=== PATIENT | female | born 1975 | race Caucasian/White ===

== ENCOUNTER → 2020-12-25 09:32 | Outpatient (CLI) | payer OTHER, SELFPAY ==
--- NOTE | 2020-12-25 09:37 | RAD_ITS ---
STUDY: X-RAY - THORACIC SPINE REASON FOR EXAM: Female, 45 years old. left thoracic radiculopathy, ? spine as root cause TECHNIQUE: 2 view(s) of the thoracic spine were obtained. COMPARISON: None. FINDINGS: Normal kyphosis of the thoracic spine. There is no substantial scoliosis. Normal thoracic vertebrae and endplates. Normal disc space heights. The soft tissue structures are unremarkable. RAD/Thoracic Spine 2 Views IMPRESSION: Normal x-ray examination of the thoracic spine. Electronically Signed: Russ Neff MD at 11:06 EST Tel , Service support ,
== END ==
PROVIDERS: PCP Family Medicine; Referring Provider Family Medicine; Visit Provider Family Medicine
DX: M54.14 Radiculopathy, thoracic region (principal)
CPT/HCPCS: 72070; 72072

== ENCOUNTER → 2020-12-30 10:42 | Outpatient (CLI) | payer OTHER, SELFPAY ==
--- NOTE | 2020-12-30 10:44 | US_ITS ---
STUDY: ABDOMINAL ULTRASOUND - LEFT UPPER QUADRANT REASON FOR EXAM: Female, 45 years old. LUQ PAIN TECHNIQUE: Transabdominal ultrasound was performed with real-time and static schulz scale imaging. TECHNICAL QUALITY: Adequate. COMPARISON: None. FINDINGS: Spleen: Normal size of the spleen. The spleen measures 8.4 cm x 3.5 cm x 2.2 cm. Left Kidney: Normal size of the left kidney. The left kidney measures 10.3 cm x 5.2 cm x 5.0 cm. Normal renal cortex. The left cortex measures 1.3 cm. There is no demonstrated renal mass or cyst. There is no left hydronephrosis. US/Spleen IMPRESSION: Normal left upper quadrant abdominal ultrasound examination. Electronically Signed: Elroy Daley MD at 12:40 EDT , Service support ,
== END ==
PROVIDERS: PCP Family Medicine; Referring Provider Family Medicine; Visit Provider Family Medicine
DX: R10.12 Left upper quadrant pain (principal)
CPT/HCPCS: 76705

== ENCOUNTER → 2021-01-15 07:44 | Outpatient (CLI) | payer OTHER, SELFPAY ==
--- NOTE | 2021-01-15 07:46 | CT_ITS ---
STUDY: CT ABDOMEN AND PELVIS WITH CONTRAST REASON FOR EXAM: Female, 45 years old. ABD PAIN / RO ABDOMINO PELVIC MASS / LLQ PAIN / LUQ PAIN RADIATION DOSAGE (If Supplied By Facility): CTDIvol = ( 11.51 ) mGy, DLP = ( 497.36 ) mGycm TECHNIQUE: Transaxial images were obtained from the dome of the diaphragm to the symphysis pubis with oral contrast. Oral and amp; IV Readi-CAT and amp; 100mL Isovue-370 was administered. Sagittal and coronal images were reconstructed. Individualized dose optimization techniques were used for this CT. COMPARISON: None. FINDINGS: There is evidence of bilateral breast prostheses. The visualized lung bases are unremarkable. The visualized portions of the heart are within normal limits. There is a 1.2 cm cyst in the anterior right lobe of the liver superiorly. 2 tiny cysts are also seen along the inferior edge of the right lobe of the liver. Normal gallbladder and extrahepatic biliary system. Normal spleen. Normal pancreas. Normal bilateral adrenal glands. Normal right kidney. Normal left kidney. Normal visualized stomach. Normal small intestine. Normal colon. The appendix is visualized and appears normal. Normal abdominal aorta. Normal inferior vena cava. Normal retroperitoneum. Normal urinary bladder. Enlarged fibroid uterus. Correlation with ultrasound is recommended. The uterus is retroverted. Normal abdominal wall. Normal osseous structures. CT/Abdomen/Pelvis WITH Contrast IMPRESSION: Small hepatic cysts. Enlarged fibroid uterus. Correlation with pelvic ultrasound is recommended. Electronically Signed: Elroy Daley MD at 12:58 EDT , Service support ,
== END ==
PROVIDERS: PCP Family Medicine; Referring Provider Family Medicine; Visit Provider Family Medicine
DX: R10.9 Unspecified abdominal pain (principal)
CPT/HCPCS: 74177; Q9967

== ENCOUNTER → 2022-07-12 | Outpatient (CLI) | payer BC, SELFPAY | END | disposition home or self-care (01) | PROVIDERS: PCP Family Medicine; Visit Provider Family Medicine | DX: R30.0 Dysuria (principal) | CPT/HCPCS: 87077; 87086; 87088; 87186 ==

== ENCOUNTER 2023-06-11 09:41 | Emergency (ER) | payer BC, SELFPAY ==
[2023-06-11 09:42] VITALS: BP 101/56; PULSE 72; RESP 15; TEMP 36.3; O2SAT 100; BMI 22.6
--- NOTE | 2023-06-11 10:09 | RAD_ITS ---
INDICATION: Pain, trauma -- -- top of foot sprayed with washer assembler, lacerations to top of foot -- pain top of foot and anterior ankle EXAMINATION/TECHNIQUE: X-RAY - LEFT XR Foot Min 3 Views 3 VIEWS COMPARISON: No relevant prior comparison study available FINDINGS: SOFT TISSUES: There is mild soft tissue fullness associated with radiolucencies along the dorsal aspect of the midfoot. No radiopaque foreign body. BONES/JOINTS: No acute fracture or subluxation.. Normal alignment. Preservation of the joint space.. No sclerotic or destructive changes observed. RAD/Foot min 3 Views IMPRESSION: No acute osseous injury. Soft tissue fullness associated with radiolucency suggesting air within the dorsal aspect of the midfoot consistent with recent trauma. Electronically Signed: Lala Zepeda MD at 10:34 EDT ,
--- NOTE | 2023-06-11 10:09 | EDS_ITS ---
HPI History of Present Illness Chief Complaint: Lower Extremity Injury Narrative Narrative: 48-year-old female who denies significant past medical history presents with injury to the dorsum of her left foot that she sustained just prior to arrival. She states that she was wearing sandals/flip-flops and using a low pressure firer. She looked away for a moment because she felt a foreign body between her toes on her right foot. The low pressure firer nozzle passed across the dorsum of her left foot. She now has pain diffusely throughout her left foot. She denies other injury. She believes that her tetanus immunization has been less than 10 years. She presents because of the pain and injury to her left foot. [facility] Home Medications NK 06/11/23 [History Last Taken Unknown] Allergy/AdvReac Type Severity Reaction Status Date / Time No Known Allergies Allergy Verified 06/11/23 09:43 Social History Smoking Status: Never smoker ROS ROS ED ROS Narrative Constitutional: No fever, no chills. HEENT: No sore throat. No neck pain. No loss of vision. No rhinorrhea. Cardiovascular: No chest pain. No palpitations. No pedal edema. Respiratory: No cough, no shortness of breath. Abdominal: No abdominal pain. No nausea. No vomiting. Genitourinary: No dysuria. No hematuria. Musculoskeletal: No myalgias. Left foot pain worse with weightbearing. Neurologic: No headaches. No dizziness. No lightheadedness. Skin: No rash. No change in color. Laceration/low pressure firer injury to dorsum of left foot. Psychiatric: No depression. No anxiety. EXAM Physical Exam Narrative Exam Narrative: Afebrile. Vital signs noted. HEENT: Normocephalic. Atraumatic. PERRL, EOMI. Neck soft and supple. No point tenderness or step off. Cardiovascular: Regular rate and rhythm. No murmurs, rubs, or gallops appreciated. Respiratory: No tachypnea. Lungs clear to auscultation bilaterally. Gastrointestinal: Abdomen soft, nontender, with normoactive bowel sounds. No rebound or guarding. Neurological: Awake. Alert. Nonfocal, nonlateralizing. Skin: No rash. Normal color. No pallor. Positive V-shaped skin avulsion on dorsum of left foot, no active bleeding. Musculoskeletal: No pedal edema. Full range of motion extremities. Range of motion of left toes mildly limited secondary to pain. Diffuse tenderness across dorsum of left foot. Palpable dorsalis pedis pulse. No bony tenderness of the ankle and above. Const Vital Signs: 06/11/23 09:42 Temperature 97.4 F L Temperature Source Temporal Pulse Rate 72 Respiratory Rate 15 Blood Pressure 101/56 L Blood Pressure Mean 71 Pulse Ox 100 Oxygen Delivery Method Room Air MDM MDM MDM Narrative Medical decision making narrative: With low pressure firer injury, injection of water throughout the tissues of the foot and lower leg. Additionally, in the differential is fracture secondary to high PSI injury. She declined any analgesics here in the emergency department. X-rays were obtained of the left foot in 3 views and of the left tibia and fibula in 2 views and interpreted by myself independently. See no evidence of fracture in the x-rays of the tibia and fibula, or in the 3 views of the foot. There is soft tissue swelling in the foot x-ray along the dorsum as expected with trauma of this nature. I reviewed the radiology report which confirms my independent interpretation. Upon repeat evaluation at approximately 10:40 AM, patient is now requesting something for pain. She was administered 1 Hatch tablet. I discussed patient with podiatry at this time, Dr. Longo, who would like to evaluate the patient in the ED. after evaluation, patient was discussed directly. She was placed in a postop shoe by him and bacitracin applied. He is going to defer antibiotics and follow-up with the patient tomorrow. It was felt that she be discharged safely home with follow-up to podiatry tomorrow. She did not require observation and I do not feel narcotic pain medications are indicated. Return instructions were reviewed. Disposition is discharged home in stable condition. History & Record Review Additional record(s) reviewed:: No prior records Radiography Chest X-Ray - ED: Read by ED Physician and Read by Radiologist Diagnostic Testing: Clinical Impression(s) from Imaging Studies Foot X-Ray 06/11/23 10:09 IMPRESSION: No acute osseous injury. Soft tissue fullness associated with radiolucency suggesting air within the dorsal aspect of the midfoot consistent with recent trauma. Electronically Signed: Lala Zepeda MD at 10:34 EDT , Tibia/Fibula X-Ray 06/11/23 10:09 IMPRESSION: Negative. Electronically Signed: Lala Zepeda MD at 10:32 EDT , Management Discussion w/another healthcare provider: [facility] (Dr. Longo, Podiatry) Discharge Plan Triage Chief Complaint: Lower Extremity Injury ED Provider: Preet Espinosa Dx/Rx/DC Orders Clinical Impression: Avulsion of skin of left foot, Contusion of foot, left Instructions: ED Foot Contusion, ED Skin Avulsion Prescriptions: No Action NK Primary Care Provider: Yahaira Grider Referrals: Yahaira Grider MD [Primary Care Provider] - Jose J Longo DPM [Med Staff - Active Staff] - 1 Day Activity Restrictions/Additional Instructions: [id number] analgesics as needed for pain. Follow-up with Dr. Longo tomorrow. Disposition Disposition: Home, Self Care
--- NOTE | 2023-06-11 10:09 | RAD_ITS ---
INDICATION: pain -- -- top of foot sprayed with box car washer, lacerations to top of foot -- pain top of foot and anterior ankle EXAMINATION/TECHNIQUE: X-RAY - LEFT XR Tibia/Fibula 2 Views 2 VIEWS COMPARISON: No relevant prior comparison study available FINDINGS: SOFT TISSUES: No soft tissue swelling or gas. No radiopaque foreign body. BONES/JOINTS: No acute fracture or subluxation.. Normal alignment. Preservation of the joint space.. No sclerotic or destructive changes observed. RAD/Tibia & Fibula 2 Views IMPRESSION: Negative. Electronically Signed: Lala Zepeda MD at 10:32 EDT ,
[2023-06-11] MEDS: HYDROcodone Bitartrate/Apap 5/325 Tablet PO (10:47)
[2023-06-11 11:37] VITALS: BP 124/69; PULSE 72; RESP 16; O2SAT 98
--- NOTE | 2023-06-11 11:38 | PCM.CONS.GEN ---
Assessment & Plan Assessment/Plan (1) Avulsion of skin of left foot: PLAN: -Patient was examined evaluated. All findings were discussed with the patient. All questions were answered to the patient's satisfaction. -X-rays 3 view foot, 2 view tibia-fibula: X-rays were reviewed. No evidence of emphysema present. Noticeable soft tissue air secondary to recent trauma. No fractures or dislocations noted. No additional abnormalities. Agree with radiology findings. -The left foot was dressed with topical bacitracin ointment, Telfa, 4 x 4 gauze, Shanta wrap and Gera bandage. Surgical shoe was dispensed to the patient. -Patient was given the okay to change dressing tomorrow and begin showering and to wash her foot with warm soap and water. She will follow-up in clinic for outpatient observation. -Patient was told to call the office with any questions or concerns. -Thank you for the consult! (2) Contusion of foot, left: (3) Pain in left foot: HPI Consult Data Date of Consult: 06/11/23 HPI Narrative Reason for Consultation: Laceration secondary to pressure ulcer left lower extremity. HPI Narrative: KELLY VILLASEÑOR, is a 48 F who presents to [facility] emergency hospital secondary to laceration with oil rag washer to left foot. Patient was pressure washing her driveway/sidewalk where she turned her head and accidentally struck her foot while using the oil rag washer sometime this morning. The patient admits to feeling some rocks hit the contralateral foot which caused her to look away thus striking her left foot with a oil rag washer. She admits to wearing sandals and not rubber shoes at the time of the injury. She rates her pain as 8 out of 10 on the pain scale secondary to the injury. She has no significant past medical history when interviewed. She denies any other additional trauma. Tetanus status/immunization has been less than 10 years ago. She denies any other pedal complaints at this time. [facility] Home Medications NK 06/11/23 [History Last Taken Unknown] Allergy/AdvReac Type Severity Reaction Status Date / Time No Known Allergies Allergy Verified 06/11/23 09:43 Social History Smoking Status: Never smoker Physical Exam Narrative Vascular: DP and PT pulses are palpable. CFT is brisk. Blanchable erythema is appreciated to dorsal aspect of the left foot. Nonpitting edema to left lower extremity is present. Neurological: Light touch and epicritic station is intact. Patient responds to painful stimuli. Dermatological: V-shaped laceration to the dorsal aspect of the left foot. Wound base is granular nature with evidence of previous sanguinous drainage. Erythema is blanchable. There is no proximal streaking. No sign of infection. Musculoskeletal: Mild to moderate palpatory tenderness appreciated to the laceration of the dorsal aspect of the left foot. No pain with calf compression. Psych mental status grossly normal Radiology Impression Foot X-Ray 06/11/23 10:09 IMPRESSION: No acute osseous injury. Soft tissue fullness associated with radiolucency suggesting air within the dorsal aspect of the midfoot consistent with recent trauma. Electronically Signed: Lala Zepeda MD at 10:34 EDT , Tibia/Fibula X-Ray 06/11/23 10:09 IMPRESSION: Negative. Electronically Signed: Lala Zepeda MD at 10:32 EDT ,
== END 2023-06-11 11:38 | disposition home or self-care (01) ==
PROVIDERS: Emergency Provider Emergency Medicine; PCP Family Medicine; Visit Provider Emergency Medicine
DX: S91.312A Laceration without foreign body, left foot, initial encounter (principal); S90.32XA Contusion of left foot, initial encounter; X58.XXXA Exposure to other specified factors, initial encounter
CPT/HCPCS: 73590; 73630; 99283

== ENCOUNTER → 2024-04-05 | Outpatient (CLI) | payer BC, SELFPAY ==
--- NOTE | 2024-04-05 10:16 | RAD_ITS ---
STUDY: X-RAY CHEST REASON FOR EXAM: Female, 48 years old. Pain. TECHNIQUE: Frontal and lateral views of the chest. COMPARISON: April 05, 2024 FINDINGS: The lungs are clear and expanded. There is no demonstrated pleural abnormality. Normal size heart. Normal mediastinum and winnie. Normal visualized pulmonary arteries. Normal visualized aortic arch and descending thoracic aorta. Normal visualized thoracic spine. Normal visualized ribs, clavicles, and shoulders. No abnormality of the visualized soft tissue structures of the upper abdomen. RAD/Chest PA and Lateral IMPRESSION: No interval change. Normal x-ray examination of the chest. Electronically Signed: Meño Gomez MD at 12:29 EDT ,
--- NOTE | 2024-04-05 10:16 | RAD_ITS ---
STUDY: X-RAY - THORACIC SPINE REASON FOR EXAM: Female, 48 years old. Pain. TECHNIQUE: 2 view(s) of the thoracic spine were obtained. COMPARISON: December 25, 2020 FINDINGS: Normal kyphosis of the thoracic spine. There is no substantial scoliosis. Normal thoracic vertebrae and endplates. Normal disc space heights. The soft tissue structures are normal. RAD/Thoracic Spine 3 Views IMPRESSION: No interval change. Normal x-ray examination of the thoracic spine. Electronically Signed: Meño Gomez MD at 15:09 EDT ,
[2024-04-05 12:21] LABS: Absolute Lymphocyte Count 2.04 X10^3/uL (0.83-4.51); Absolute Neutrophil Count 4.1 X10^3/uL (2.0-7.7); Basophil# 0.02 X10^3/uL; Basophil% 0.3 % (0-1); Eosinophil# 0.25 X10^3/uL; Eosinophils% 3.6 % (0-5); Hematocrit 43.5 % (37-47); Hemoglobin 14.7 g/dL (12.0-15.0); Lymphocyte # 2.04 X10^3/ul (0.83-4.51); Lymphocyte % 29.5 % (19-41); Mean Corp Hgb Conc 33.8 g/dL (32-36); Mean Corpuscular Hgb 30.6 pg (27.0-32.0); Mean Corpuscular Volume 90.4 fL (81-99); Mean Platelet Vol. 9.5 fl (6.2-12.0); Monocyte# 0.54 X10^3/uL; Monocyte% 7.8 % (0-10); NRBC Flagged by Analyzer 0 % (0-5); Neutrophil # 4.06 X10^3/uL (2.7-7.7); Neutrophil % 58.7 % (47-70); Platelet Count 310 K/mm3 (150-450); RBC Distribution Width CV 13.7 % (11.6-14.6); RBC Distribution Width SD 45.8 fl (35.1-43.9); Red Blood Count 4.81 M/mm3 (4.2-5.4); White Blood Count 6.9 K/mm3 (4.4-11.0)
[2024-04-05 13:21] LABS: ALB/GLOB Ratio 1.3 RATIO (0.9-2.4); AST(SGOT) 14 U/L (15-37); Alanine Aminotransfer ALT/SGPT 24 U/L (13-56); Albumin, Serum 4.1 g/dL (3.2-5.0); Alkaline Phosphatase 49 U/L (45-117); Amylase 82 U/L (25-115); Anion Gap 11 (5-15); BUN 17 mg/dL (7-18); BUN/Creat Ratio 20.2 RATIO (10-20); Calcium,Total 9.1 mg/dL (8.5-10.1); Chloride 107 mmol/L (98-107); Creatinine, Serum 0.84 mg/dL (0.55-1.02); EST Glomerular Filtration Rate 77 mL/min (>60); Est Glom Filt Rate - Afr Amer 93 mL/min (>60); Globulin 3.1 g/dL (2.2-4.2); Glucose 94 mg/dL (74-106); Lipase 74 U/L (13-75); Potassium 3.9 mmol/L (3.5-5.1); Protein, Total 7.2 g/dL (6.4-8.2); Sodium Level 140 mmol/L (136-145)
== END | disposition home or self-care (01) ==
LOC: MTLAB 10:14
PROVIDERS: PCP Family Medicine; Referring Provider Nurse Practitioner Family; Visit Provider Nurse Practitioner Family
DX: R10.12 Left upper quadrant pain (principal)
CPT/HCPCS: 36415; 71046; 72072; 80053; 82150; 83690; 85025

== ENCOUNTER → 2024-04-10 | Outpatient (CLI) | payer BC, SELFPAY ==
--- NOTE | 2024-04-10 10:01 | US_ITS ---
EXAM: US ABDOMEN LIMITED, RIGHT UPPER QUADRANT CLINICAL INDICATION: LUQ PAIN X 1 MONTH TECHNIQUE: Real-time ultrasound of the right upper quadrant with image documentation. COMPARISON: No relevant prior studies available. FINDINGS: Spleen and left kidney are normal with left kidney measuring 10.6 cm in length. Pancreas is normal as imaged. No ascites or masses. US/Abdomen Limited IMPRESSION: No abnormalities in the left upper quadrant. Electronically Signed: Jorge Woods MD at 23:57 EDT ,
== END | disposition home or self-care (01) ==
PROVIDERS: PCP Family Medicine; Referring Provider Nurse Practitioner Family; Visit Provider Nurse Practitioner Family
DX: R10.12 Left upper quadrant pain (principal)
CPT/HCPCS: 76705

== ENCOUNTER → 2024-05-01 | Outpatient (CLI) | payer BC, SELFPAY ==
--- NOTE | 2024-05-01 07:03 | CT_ITS ---
STUDY: CT ABDOMEN AND PELVIS WITHOUT CONTRAST REASON FOR EXAM: Female, 49 years old. [place] LEFT SIDED PAIN RADIATION DOSAGE (If Supplied By Facility): CTDIvol = ( 6.19 ) mGy, DLP = ( 306.37 ) mGycm TECHNIQUE: Transaxial images were obtained from the dome of the diaphragm to the symphysis pubis without oral contrast, and without intravenous contrast. Sagittal and coronal images were reconstructed. Individualized dose optimization techniques were used for this CT. COMPARISON: Comparison is made with prior study dated January 15, 2021. FINDINGS: Bilateral breast prostheses. The visualized lung bases are unremarkable. The visualized portions of the heart are within normal limits. There is a 7.4 mm cyst in the anterior right lobe of the liver superiorly. Normal gallbladder and extrahepatic biliary system. Normal spleen. Normal pancreas. Normal bilateral adrenal glands. Normal right kidney. Normal left kidney. Normal visualized stomach. Normal small intestine. Normal colon. The appendix is visualized and appears normal. Normal abdominal aorta. Normal inferior vena cava. Normal retroperitoneum. Normal urinary bladder. Enlarged fibroid uterus. Normal abdominal wall. Normal osseous structures. CT/Abdomen/Pelvis without Cont IMPRESSION: Enlarged fibroid uterus. Stable small hepatic cyst. No obstructive uropathy is seen at this time. Electronically Signed: Elroy Daley MD at 11:47 EDT ,
== END | disposition home or self-care (01) ==
PROVIDERS: PCP Family Medicine; Referring Provider Nurse Practitioner Family; Visit Provider Nurse Practitioner Family
DX: R10.12 Left upper quadrant pain (principal)
CPT/HCPCS: 74176

== ENCOUNTER → 2025-05-16 | Outpatient (CLI) | payer BC, SELFPAY ==
[2025-05-16 18:00] LABS: Hematocrit 44.1 % (37-47); Hemoglobin 15.1 g/dL (12.0-15.0); Immature Granulocytes Count 0.010 X10^3/uL (0.0-0.0); Mean Corp Hgb Conc 34.2 g/dL (32-36); Mean Corpuscular Volume 86.8 fL (81-99); Mean Platelet Vol. 9.1 fl (6.2-12.0); NRBC Flagged by Analyzer 0 % (0-5); Platelet Count 290 K/mm3 (150-450); RBC Distribution Width CV 13.2 % (11.6-14.6); RBC Distribution Width SD 41.8 fl (35.1-43.9); Red Blood Count 5.08 M/mm3 (4.2-5.4); White Blood Count 7.0 K/mm3 (4.4-11.0)
[2025-05-16 18:45] LABS: AST(SGOT) 20 U/L (<=31); Alanine Aminotransfer ALT/SGPT 17 U/L (<=34); Albumin, Serum 4.8 g/dL (3.5-5.0); Alkaline Phosphatase 58 U/L (35-104); Anion Gap 11 (5-15); BUN 15 mg/dL (4-19); BUN/Creat Ratio 16.0 RATIO (10-20); Calcium,Total 9.6 mg/dL (7.6-11.0); Carbon Dioxide 25.4 mmol/L (21.0-32.0); Chloride 104 mmol/L (98-108); Ferritin 83 ng/mL (22-378); Free T3 2.6 pg/mL (2.18-3.98); Globulin 2.4 g/dL (2.2-4.2); Glucose 92 mg/dL (70-99); Potassium 4.0 mmol/L (3.3-5.1); Vitamin D,25 Hydroxy 109.0 ng/mL (30-100)
[2025-05-19 15:07] LABS: Anti-dsDNA Ab 3 IU/mL (0-9)
== END | disposition home or self-care (01) ==
LOC: MTLAB 16:35
PROVIDERS: PCP Nurse Practitioner Family; Referring Provider Physician Assistant; Visit Provider Physician Assistant
DX: L65.9 Nonscarring hair loss, unspecified (principal); E55.9 Vitamin D deficiency, unspecified; F43.0 Acute stress reaction; E07.89 Other specified disorders of thyroid
CPT/HCPCS: 36415; 80053; 82306; 82627; 82728; 84439; 84443; 84481; 85025; 86038; 86225; 86376; 82626

== ENCOUNTER → 2025-05-21 | Outpatient (CLI) | payer BC, SELFPAY ==
[2025-05-21 17:39] LABS: Iron 61 ug/dL (50-170)
[2025-05-21 17:41] LABS: Follicle Stimulating Hormone 67.0 mIU/mL
[2025-05-23 04:07] LABS: PROGESTERONE <0.1 ng/mL (.); PROLACTIN 11.6 ng/mL (4.8-33.4)
== END | disposition home or self-care (01) ==
LOC: MTLAB 13:28
PROVIDERS: PCP Nurse Practitioner Family; Referring Provider Nurse Practitioner Family; Visit Provider Nurse Practitioner Family
DX: L65.9 Nonscarring hair loss, unspecified (principal)
CPT/HCPCS: 36415; 82670; 83001; 83002; 83540; 84144; 84146; 84403

== ENCOUNTER → 2025-05-23 | Outpatient (CLI) | payer BC, SELFPAY ==
[2025-05-27 09:08] LABS: Anti-Chromatin <0.2 AI (0.0-0.9); Anti-Jo <0.2 AI (0.0-0.9); Anti-dsDNA Ab 3 IU/mL (0-9); Anti-ribosomal P Antibodies <0.2 AI (0.0-0.9); SJOGREN'S Anti-SS-A test < 0.2 AI (0.0-0.9); SJOGREN'S Anti-SS-B test < 0.2 AI (0.0-0.9); Smith/RNP Ab <0.2 AI (0.0-0.9)
== END | disposition home or self-care (01) ==
PROVIDERS: PCP Nurse Practitioner Family; Referring Provider Nurse Practitioner Family; Visit Provider Nurse Practitioner Family
DX: R76.8 Other specified abnormal immunological findings in serum (principal)
CPT/HCPCS: 36415; 86038; 86225; 86235

== ENCOUNTER → 2025-06-12 | Outpatient (CLI) | payer BC, SELFPAY ==
[2025-06-17 15:07] LABS: ANTINUCLEAR ANTIBODIES DIRECT Negative (Negative)
== END | disposition home or self-care (01) ==
LOC: MTLAB 14:51
PROVIDERS: PCP Nurse Practitioner Family; Referring Provider Physician Assistant; Visit Provider Physician Assistant
DX: L66.11 Classic lichen planopilaris (principal)
CPT/HCPCS: 36415; 86038